=== PATIENT | male | born 1980 | race Caucasian/White ===

== ENCOUNTER 2016-09-01 10:14 | Emergency (ER) | payer OTHER ==
[~2016-09-01] VITALS: Ht 177.8 cm; Wt 86.4 kg
[~2016-09-01 10:14] MED LIST: CLIN-78 PO; IBUP-1827 PO; TRAM50TA2 PO; ZLP5T PO
[2016-09-01 10:19] VITALS: BP 115/67; PULSE 63; RESP 16; O2SAT 98
[2016-09-01] MEDS ORDERED: QUET50TA55 PO (10:41)
--- NOTE | 2016-09-01 11:41 | ED.REPORT ---
HPI-Back Pain Under 40 Date of Service Sep 01, 2016 ED Provider: Derik Amaya PA-C Miles is an otherwise healthy and active 35-year-old male who presents today with back pain. He reports that he had minor back pain we will up this morning which has been worsening throughout the day to the point where it becomes difficult for him to walk. Admits to pain shooting into his left leg to approximately the calf. As well as tingling in his left foot. He locates the pain in his central lower back. Pain is relieved leaning forward at the waist when standing. Denies significant history of back pain as well as trauma, unusual exertion. Denies fever, DM, HIV, organ transplant, immunosuppression, recent surgery, recent infection, history of back surgery, surgical implants and IV drug use. Denies bowel/bladder dysfunction and saddle anesthesia. Nursing Notes Stated Complaint: BACK PAIN Chief Complaint: Back Pain or Injury Nursing Notes Reviewed: Yes Allergies: Coded Allergies: No Known Allergies (Verified Allergy, Unknown, 04/21/16) Scheduled Prednisone (PredniSONE) 20 Mg Tablet 40 MG PO DAILY Scheduled PRN Quetiapine Fumarate (Quetiapine Fumarate) 50 Mg Tablet 50 MG PO HS PRN PRN For Insomnia oxyCODONE (oxyCODONE) 5 Mg Tablet 5-10 MG PO Q4H PRN PRN For Pain General Time Seen by MD: 11:39 Chief Complaint Back pain Sudden in Onset?: No Past Medical History Past Medical History anxiety Schizophrenia Bipolar disorder Past Surgical History none reported Smoking History Never Smoker Social History Marijuana daily Alcohol Use: Denies alcohol use Drug Use: THC Other Social History: Ambulatory Status Independent Review of Systems Review of Systems Note: Negative unless stated otherwise in history of present illness Physical Exam General: Well appearing, well developed, well nourished, moderate distress. Curled on the left side on the gurney. Head: Atraumatic, normocephalic. Eyes: No scleral icterus or injection. No discharge. Vision grossly intact. ENT: Voice clear, hearing grossly intact. Respiratory: Regular rate and rhythm. Breath sounds present, clear to auscultation and equal bilaterally. No respiratory distress. No increased work of breathing, speaks in complete sentences. Cardiovascular: Regular rate and rhythm, without murmur, gallop or rub. No pedal edema. Gastrointestinal: Abdomen flat and non-tender without guarding or rebound. Bowel sounds normoactive. Skin: Warm and dry. Back: Normal to inspection moderately tender over left SI joint and lower lumbar spine. Neurological: Normal gait, toe walk, heel walk, Romberg. Hip flexion, knee extension, ankle dorsiflexion and plantarflexion strength 5/5 B/L. Patellar and Achilles reflexes present and equal B/L. Sensation to sharp touch intact at medial leg, dorsal foot and lateral foot B/L. negative straight leg raise, negative cross straight leg raise. Negative pronator drift. Psychological: Alert and oriented. Speech appropriate, linear and logical. Behavior appropriate. Initial Vital Signs Vital Signs (First) Date Time Temp Pulse Resp B/P Pulse Ox O2 Delivery O2 Flow Rate FiO2 09/01/16 10:19 36.4 63 16 115/67 98 Room Air Initial VS: Reviewed, Vital signs normal Re-Eval/Medical Decision Med Decision/Clinical Course Otherwise healthy 35-year-old male presents with insidious onset lower back pain without red flag symptoms for epidural abscess, subdural hematoma, cauda equina syndrome or sciatica. Urinalysis is negative for infection or blood. I believe this is musculoskeletal back pain, stable and safe for discharge. Provided a prescription for prednisone as well as 1 dose in the emergency Department. Advised rest, [id number] analgesia and provided prescription for a small amount of oxycodone to supplement with precautions. Advised primary care follow-up, gave emergency return precautions. Patient understands and agrees with the plan. Discharge & Departure Impression: Primary Impression: Acute back pain Back pain location: low back pain Back pain laterality: left Sciatica presence: without sciatica Qualified Code: M54.5 - Low back pain Disposition: Home All VS Reviewed: Yes Condition: Stable Patient Instructions: Acute Low Back Pain (ED) Additional Instructions: Evaluation in the emergency department for lower back pain. History and physical are reassuring for emergent neurological condition such as epidural abscess or cauda equina syndrome. History does not suggest that this is likely to be a spinal fracture. Your neurological examination is normal, indicating there is no damage to the nerves in your back. I see no indication to perform imaging tests at this time. We have also ruled out a kidney infection or stone. I believe this is musculoskeletal back pain and Treatment is largely symptomatic. Rest is important, especially for the next couple of days, but avoid total bed rest. Reasonable activity as tolerated is the best. Apply ice to the affected area 4 times a day for 20 minutes over the next 24 hours. After that you will probably find warm compresses most helpful. The pain is best treated with 800 mg of ibuprofen (Advil, Motrin) every 6 hours , or 1000 mg of acetaminophen (Tylenol) every 6 hours. These drugs can be taken at the same time for more severe pain. I will also give you a prescription for small amount of oxycodone to be taken every 4-6 hours for pain not controlled by other medications. These not drive or drink alcohol within 4 hours of taking this medication. We have given U1 dose of prednisone here in the emergency department. I will give a prescription for 4 more days. Most of all be patient: 70-90% of people with injuries presenting like yours will resolve within 7 weeks, even without treatment. Follow-up with your primary care provider in the next week or two to be sure your recovery is progressing as expected. Return the emergency department for new or worsening symptoms such as loss of bowel/bladder control, numbness between your legs, new weakness/numbness or high fever. Referrals: Glo Marshall (PCP) EDSupervising Provider for APC: Rob Pelayo MD copies to: Glo Marshall Seth PA-C Sep 01, 2016 11:41
[2016-09-01] MEDS ORDERED: predniSONE 20 mg Tablet PO ONE (13:10)
[2016-09-01] MEDS ORDERED: PRE20 PO (13:16)
[2016-09-01] MEDS ORDERED: OXYC5TAB72 PO (13:16)
[2016-09-01 13:27] VITALS: BP 116/58; PULSE 64; RESP 16; O2SAT 99
== END 2016-09-01 13:16 | disposition home or self-care (01) ==
LOC: SED 10:14
DX: M54.5 Low back pain (principal); F20.9 Schizophrenia, unspecified

== ENCOUNTER 2017-02-09 22:13 | Emergency (ER) | payer OTHER ==
[~2017-02-09] VITALS: Ht 177.8 cm; Wt 86.4 kg
[~2017-02-09 22:13] MED LIST changes: -CLIN-78 PO; -IBUP-1827 PO; +OXYC5TAB72 PO; +PRE20 PO; +QUET50TA55 PO; -TRAM50TA2 PO; -ZLP5T PO
[2017-02-09 22:20] VITALS: BP 145/84; PULSE 64; RESP 16; O2SAT 98
--- NOTE | 2017-02-09 22:51 | ED.REPORT ---
HPI-Rash / Abscess Date of Service Feb 09, 2017 ED Provider: Cole James DO Patient is a 36 year old male who presents to the ED complaining of an abscess in his mouth onset two days ago. Associated symptoms include nausea and an episode of emesis. Patient also complains of an abscess in the left suprapubic area onset 2 days ago. He states that he was unable to take the antibiotics that he received from the dentist. Nursing Notes Stated Complaint: VOMITING,ABSCESS TOOTH Chief Complaint: Skin Rash/Abscess Nursing Notes Reviewed: Yes Allergies: Coded Allergies: No Known Allergies (Verified Allergy, Unknown, 04/21/16) Scheduled Prednisone (PredniSONE) 20 Mg Tablet 40 MG PO DAILY Scheduled PRN Quetiapine Fumarate (Quetiapine Fumarate) 50 Mg Tablet 50 MG PO HS PRN PRN For Insomnia oxyCODONE (oxyCODONE) 5 Mg Tablet 5-10 MG PO Q4H PRN PRN For Pain General Time Seen by MD: 22:51 Chief Complaint Abscess Hx Obtained From: Patient Arrived By: Walk-in Onset Occurred: 2 days ago Symptom Duration: Since onset Location: : Inguinal: Other (mouth) Quality: Painful Severity: Current: Moderate Recent Healthcare: Recent doctor visit Similar Sx Previous: Yes Past Medical History Past Medical History anxiety Schizophrenia Bipolar disorder Past Surgical History none reported Smoking History Never Smoker Social History Marijuana daily Alcohol Use: Denies alcohol use Drug Use: THC Other Social History: Good social support, Ambulatory Status Independent Review of Systems Review of Systems Note: +left suprapubic abscess Constitutional: Denies: Chills, Fever Ears / Nose / Throat: Reports: Mouth pain Respiratory: Denies: Non-productive cough, Shortness of breath GI: Reports: Nausea, Vomiting Skin: Denies Itching, Denies Rash Complete sys rev & neg: except as marked. Physical Exam Initial Vital Signs Vital Signs (First) Date Time Temp Pulse Resp B/P Pulse Ox O2 Delivery O2 Flow Rate FiO2 02/09/17 22:20 36.7 64 16 145/84 98 Room Air Initial VS: Reviewed General/Constitutional: Awake, Alert Skin: Warm, Dry Head / Eyes: Atraumatic, Normocephalic, PERRL, EOMI ENT: Airway patent, Mucous membranes moist right buccal cellulitis no evidence of abscess Respiratory / Chest: Atraumatic, No respiratory distress Upper Extremity / MS: Atraumatic, Full range of motion Neurologic: Oriented X3, Speech NL left suprapubic abscess with surround cellulitis Interpretation & Diagnostics Lab Results Interpretation Test 02/09/17 23:20 Hold Purple Top Tube Received (Received) Hold Blue Top Tube Received (Received) Hold Smoot Top Tube Received (Received) Hold Chappell Top Tube Received (Received) Procedures Incision & Drainage Abscess Time: 00:55 Procedure Performed by: ED physician Consent / Setup / Site Prep: Consent from patient, Time-out performed, Hand hygiene observed Location of Abscess: left suprapubic area Skin Preparation Agent: Betadine Local Anesthesia: Lidocaine w epi 1% Incised Abscess with Scalpel: #11 Pus Drained: Medium Irrigation: Yes, Copious Post-Procedure / Complications: Dressing applied, No complications, Condition improved, Tolerated procedure well, Patient stable Re-Eval/Medical Decision Summary of Info: Oral pharyngeal and cutaneous infection. MRSA is definitely in the differential. As such we will treat him with clindamycin. C. difficile warnings were given. Short course of Percocet with opiate warnings given as well. Re-Evaluation/Progress #1: Time of Eval: 00:25 Re-Evaluation/Progress Note: Discussed plan for I&D of suprapubic abscess. Patient understands and agrees to plan. All questions were addressed. Re-Evaluation/Progress #2: Time of Eval: 01:01 Re-Evaluation/Progress Note: Discussed plan for wound check and discharge. Patient understands and agrees to plan. All questions were addressed. Counseled Regarding: Diagnosis, Need for follow-up, When/why to return to ED Discharge & Departure Impression: Primary Impression: Abscess Additional Impression: Cellulitis Site of cellulitis: other site Qualified Code: L03.818 - Cellulitis of other sites Disposition: Home Discharge Condition All VS Reviewed: Yes Condition: Stable Patient Instructions: Abscess (ED), Cellulitis (ED) Additional Instructions: Have the wound checked in 48 hours. Take Clindamycin 4x a day for 5 days. Take 1 Zofran every 8 hours as needed for nausea. You can take 1-2 Percocet every 6 hours as needed for severe pain. Do not combine with Acetaminophen. Do not drink alcohol or drive while taking the pain medication as it can have a sedating effect. Follow up with your dentist next week. Return to the emergency department if you develop any new or concerning symptoms including fever, increasing pain, spreading redness, swelling or pus drainage. Referrals: Glo Marshall (PCP) Julito Attestation Portions of this note were transcribed by Shanice Johnson. I, Dr. James personally performed the history, physical exam and medical decision-making; I reviewed and confirmed the accuracy of the information in the transcribed note. Signed by: Julito Yu, 02/09/17 copies to: Glo Marshall Todd P DO Feb 09, 2017 22:51 Denisa Johnson Feb 09, 2017 23:02
[2017-02-09] MEDS ORDERED: Ondansetron 2 mg/mL 2 mL Inj IVPUSH PRN (23:15)
[2017-02-09] MEDS ORDERED: Lidocaine 1% 50 mL Inj NERVEBLOCK ONE (23:15)
[2017-02-09] MEDS ORDERED: Clindamycin Inj 900 MG in IV Premix 1 EACH IV ONE (23:15)
[2017-02-09] MEDS ORDERED: HYDROmorphone 1 mg/mL Inj IVPUSH ONE (23:15)
[2017-02-10 01:19] VITALS: BP 124/71; PULSE 57; RESP 18; O2SAT 96
== END 2017-02-10 01:15 | disposition home or self-care (01) ==
LOC: SED 22:13
DX: L02.818 Cutaneous abscess of other sites (principal); L03.818 Cellulitis of other sites
CPT/HCPCS: 10060; 96365; 96375; 99284; J1170; J1885; J2405; J3490